=== PATIENT | female | born 1970 | race African-American/Black ===

== ENCOUNTER 2019-02-21 19:03 | Emergency (ER) | payer MEDICAID, OTHER ==
[2019-02-21] MEDS ORDERED: OXYCODONE-ACETAMINOPHEN 5-325 MG TABLET PO ONE (19:34)
--- NOTE | 2019-02-21 19:37 | ER Document Report ---
ED Medical Screen (RME) - General Chief Complaint: Finger Injury Stated Complaint: LEFT HAND FINGER INJURY Time Seen by Provider: 02/21/19 19:33 Mode of Arrival: Ambulatory Information source: Patient Notes: 49-year-old female presented to ED for fall and injury to the left ring finger. She had a ring on the finger and we were able to get the ring off with pain. She does have deformity to the end of the finger. We will treat the patient with some Percocet and send her for a x-ray of the finger. Patient is alert oriented respirations regular nonlabored speaking in full sentences I have greeted and performed a rapid initial assessment of this patient. A comprehensive ED assessment and evaluation of the patient, analysis of test results and completion of medical decision making process will be conducted by an additional ED providers. Physical Exam - Vital signs Vitals: Temp Pulse Resp BP Pulse Ox 98.8 F 88 18 120/74 97 02/21/19 19:21 02/21/19 19:21 02/21/19 19:21 02/21/19 19:21 02/21/19 19:21 Course - Vital Signs Vital signs: Temp Pulse Resp BP Pulse Ox 98.8 F 88 18 120/74 97 02/21/19 19:21 02/21/19 19:21 02/21/19 19:21 02/21/19 19:21 02/21/19 19:21
--- NOTE | 2019-02-21 19:55 | RADIOLOGY REPORT (SQ) ---
EXAM DESCRIPTION: FINGER LEFT COMPLETED DATE/TIME: 02/21/2019 7:46 pm REASON FOR STUDY: Deformity to the left ring finger injury COMPARISON: None. NUMBER OF VIEWS: Three views. TECHNIQUE: AP, lateral, and oblique images acquired of the left fourth finger. LIMITATIONS: None. FINDINGS: MINERALIZATION: Normal. BONES: Comminuted displaced fracture of the middle phalanx of the 4th finger. SOFT TISSUES: No soft tissue swelling. No foreign body. OTHER: No other significant finding. IMPRESSION: COMMINUTED DISPLACED FRACTURE OF THE MIDDLE PHALANX OF THE LEFT 4TH FINGER. TECHNICAL DOCUMENTATION: JOB ID: [id number] [place]- All Rights Reserved Reading location - IP/workstation name: [email or web address]
[2019-02-21] MEDS ORDERED: MORPHINE SULFATE 10 MG/ML INJ IM ONE (21:48)
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
[2019-02-21 22:46] VITALS: BP 112/54
== END 2019-02-21 22:52 | disposition home or self-care (01) ==
LOC: ER 19:03
DX: S62.624A Displaced fracture of middle phalanx of right ring finger, initial encounter for closed fracture (principal); X58.XXXA Exposure to other specified factors, initial encounter
CPT/HCPCS: 99283; 96372; 73140; J2270